=== PATIENT | female | born 1965 | race American Indian/Alaskan Native ===

== ENCOUNTER 2017-05-05 22:54 | Emergency (ER) | payer MEDICAID, OTHER ==
[2017-05-05 23:08] VITALS: BP 120/59
[2017-05-05] MEDS ORDERED: Ketorolac 60 MG/2 ML SDV IM ONE (23:21)
--- NOTE | 2017-05-06 00:04 | EDM.PDOC ---
ED HPI GENERAL MEDICAL PROBLEM - General Chief Complaint: Upper Extremity Injury/Pain Stated Complaint: RIGHT SHOULDER PAIN Time Seen by Provider: 05/05/17 23:00 Source of Information: Reports: Patient History Limitations: Reports: No Limitations - History of Present Illness Onset: Today Onset Date: 05/05/17 Onset Time: 15:00 Duration: Constant Location: Reports: Upper Extremity, Right Quality: Reports: Burning, Pressure Severity: Moderate Improves with: Reports: None Worsens with: Reports: None Associated Symptoms: Reports: No Other Symptoms Right Shoulder Pain Score (Numeric/FACES): 7 - Related Data Allergies Allergy/AdvReac Type Severity Reaction Status Date / Time No Known Allergies Allergy Verified 03/13/16 17:34 Home Meds: Home Meds Cholecalciferol (Vitamin D3) [Vitamin D3] 4,000 unit PO DAILY 03/13/16 [History] Cyanocobalamin (Vitamin B-12) [Cyanocobalamin Injection] 1,000 mcg IM ASDIRECTED 03/13/16 [History] DULoxetine [Cymbalta] 60 mg PO DAILY 03/13/16 [History] Gabapentin [Neurontin] 300 mg PO DAILY 03/13/16 [History] Past Medical History HEENT History: Reports: 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: Musculoskeletal History: Reports: Back Pain, Chronic Psychiatric History: Reports: Depression Hematologic History: Reports: B12 Deficiency - Infectious Disease History Infectious Disease History: Reports: Chicken Pox - Past Surgical History GI Surgical History: Reports: Bariatric Procedure Female Surgical History: Reports: Section Musculoskeletal Surgical History: Reports: Arthroscopic Procedure Social & Family History - Tobacco Use Smoking Status *Q: Current Every Day Smoker Years of Tobacco use: 35 Packs/Tins Daily: 0.5 - Recreational Drug Use Recreational Drug Use: No Review of Systems - Review of Systems Review Of Systems: See Below Constitutional: Reports: Other (pain right shoulder and wrist) Eyes: Reports: No Symptoms Ears: Reports: No Symptoms Nose: Reports: No Symptoms Mouth/Throat: Reports: No Symptoms Respiratory: Reports: No Symptoms Cardiovascular: Reports: No Symptoms GI/Abdominal: Reports: No Symptoms Genitourinary: Reports: No Symptoms Musculoskeletal: Reports: Shoulder Pain (right), Arm Pain (right wrist) Skin: Reports: No Symptoms Neurological: Reports: No Symptoms Psychiatric: Reports: No Symptoms ED EXAM, GENERAL - Physical Exam Exam: See Below Exam Limited By: No Limitations General Appearance: Alert, WD/WN, No Apparent Distress Ears: Normal External Exam, Normal Canal, Hearing Grossly Normal, Normal TMs Ear Exam: Bilateral Ear: Auricle Normal, Canal Normal, TM normal Nose: Normal Inspection, Normal Mucosa, No Blood Throat/Mouth: Normal Inspection Head: Atraumatic, Normocephalic Neck: Normal Inspection, Supple, Non-Tender, Full Range of Motion Respiratory/Chest: No Respiratory Distress, Lungs Clear, Normal Breath Sounds, No Accessory Muscle Use, Chest Non-Tender Cardiovascular: Normal Peripheral Pulses, Regular Rate, Rhythm, No Edema, No Gallop, No JVD, No Murmur, No Rub GI/Abdominal: Normal Bowel Sounds, Soft, Non-Tender, No Organomegaly, No Distention, No Abnormal Bruit, No Mass Extremities: Normal Inspection, Arm Pain (with intact range of motion, no pops, clicks or crepitus of right shoulder and wrist) Neurological: No Motor/Sensory Deficits Psychiatric: Normal Affect, Normal Mood Skin Exam: Warm, Dry, Intact, Normal Color, No Rash Lymphatic: No Adenopathy Course - Vital Signs Last Recorded V/S: Last Vital Signs Temp 35.6 C 05/05/17 23:05 Pulse 77 05/05/17 23:05 Resp 14 05/05/17 23:05 BP 120/59 L 05/05/17 23:05 Pulse Ox 99 05/05/17 23:05 - Orders/Labs/Meds Orders: Active Orders 24 hr Category Date Time Status Shoulder Comp Rt [CR] Stat Exams 05/05/17 23:21 Taken Wrist Comp Min 3V Rt [CR] Stat Exams 05/05/17 23:21 Taken Meds: Medications Discontinued Medications Generic Name Dose Route Start Last Admin Trade Name Freq PRN Reason Stop Dose Admin Ketorolac Tromethamine 60 mg 05/05/17 23:21 05/05/17 23:27 Toradol IM 05/05/17 23:22 60 mg ONETIME ONE Administration - Radiology Interpretation Free Text/Narrative:: xray of right shoulder and right wrist; do not show any acute bony injury. await radiologist report. splint applied to right wrist. Departure - Departure Time of Disposition: 00:01 Disposition: Home, Self-Care 01 Condition: Good Clinical Impression: Sprain of shoulder Qualifiers: Encounter type: initial encounter Laterality: right Sprain of wrist, right Qualifiers: Encounter type: initial encounter Qualified Code(s): S63.501A - Unspecified sprain of right wrist, initial encounter - Discharge Information Instructions: Shoulder Sprain, Wrist Sprain Referrals: Tennille Bernard I FILTER PULP WASHER [Primary Care Provider] - Forms: ED Department Discharge Care Plan Goals: muscle sprain; right shoulder and right wrist -rest, ice, use splint on wrist -over the counter tylenol or motrin for pain -more severe pain; Tramadol 50mg one every 4 to 6 hours as needed for pain #15 -follow up with Primary Care for recheck in 7 to 10 days if not improved or symptoms worsen return to ER as needed. - Problem List & Annotations (1) Sprain of shoulder SNOMED Code(s): 2234123 Code(s): S43.409A - UNSP SPRAIN OF UNSPECIFIED SHOULDER JOINT, INIT ENCNTR Status: Acute Priority: Medium Qualifiers: Encounter type: initial encounter Laterality: right (2) Sprain of wrist, right SNOMED Code(s): 88128889 Code(s): S63.501A - UNSPECIFIED SPRAIN OF RIGHT WRIST, INITIAL ENCOUNTER Status: Acute Priority: Medium Qualifiers: Encounter type: initial encounter Qualified Code(s): S63.501A - Unspecified sprain of right wrist, initial encounter - Problem List Review Problem List Initiated/Reviewed/Updated: Yes - My Orders Last 24 Hours: My Active Orders 05/05/17 23:21 Shoulder Comp Rt [CR] Stat Wrist Comp Min 3V Rt [CR] Stat - Assessment/Plan Last 24 Hours: My Active Orders 05/05/17 23:21 Shoulder Comp Rt [CR] Stat Wrist Comp Min 3V Rt [CR] Stat Plan: muscle sprain; right shoulder and right wrist -rest, ice, use splint on wrist -over the counter tylenol or motrin for pain -more severe pain; Tramadol 50mg one every 4 to 6 hours as needed for pain #15 -follow up with Primary Care for recheck in 7 to 10 days if not improved or symptoms worsen return to ER as needed.
--- NOTE | 2017-05-07 08:43 | CR ---
Wrist Comp Min 3V Rt INDICATION: fall, pain in right wrist FINDINGS: Sclerosis and decreased size of the lunate consistent with avascular necrosis. There is sug gestion of lucency through the lunate which could represent an acute or chronic fracture. CT would be helpful in further evaluation. Exam otherwise negative.
--- NOTE | 2017-05-07 08:44 | CR ---
Shoulder Comp Rt INDICATION: fall, pain in posterior shoulder FINDINGS: Suggestion of resection or reduction of the distal clavicle. Lateral downsloping of the acr omion. No evidence for acute fracture.
== END 2017-05-06 00:10 | disposition home or self-care (01) ==
LOC: JP.ED 22:54
DX: S43.401A Unspecified sprain of right shoulder joint, initial encounter (principal); S63.501A Unspecified sprain of right wrist, initial encounter; F32.9 Major depressive disorder, single episode, unspecified; F17.210 Nicotine dependence, cigarettes, uncomplicated; Z79.899 Other long term (current) drug therapy; X58.XXXA Exposure to other specified factors, initial encounter
CPT/HCPCS: 73030; 73110; 96372; 99283; 99284; J1885

== ENCOUNTER 2017-05-11 20:24 | Emergency (ER) | payer MEDICAID, OTHER ==
[2017-05-11 20:41] VITALS: BP 113/77
--- NOTE | 2017-05-11 21:13 | EDM.PDOC ---
ED HPI GENERAL MEDICAL PROBLEM - General Chief Complaint: Upper Extremity Injury/Pain Stated Complaint: RT SHOULDER PAIN Time Seen by Provider: 05/11/17 21:00 Source of Information: Reports: Patient History Limitations: Reports: No Limitations - History of Present Illness INITIAL COMMENTS - FREE TEXT/NARRATIVE: 51-year-old female has been having right shoulder pain for several weeks, has an orthopedic appointment later this week for recheck on that she's also had wrist discomfort with hand numbness especially at night. That has been going on for 1-2 months at least. She brought her granddaughter in to be seen because of the fever so registered to be seen. She was seen here one week ago, a right shoulder x-ray was obtained which showed no acute findings and she was to follow up this week. She has not told her primary physicians or her orthopedic physicians about her wrist and hand symptoms. 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: Musculoskeletal History: Reports: Back Pain, Chronic Psychiatric History: Reports: Depression Hematologic History: Reports: B12 Deficiency - Infectious Disease History Infectious Disease History: Reports: Chicken Pox - Past Surgical History GI Surgical History: Reports: Bariatric Procedure Female Surgical History: Reports: Section Musculoskeletal Surgical History: Reports: Arthroscopic Procedure Social & Family History - Tobacco Use Smoking Status *Q: Unknown Ever Smoked Years of Tobacco use: 35 Packs/Tins Daily: 0.5 - Recreational Drug Use Recreational Drug Use: No Review of Systems - Review of Systems Review Of Systems: See Below Constitutional: Denies: Fever Respiratory: Denies: Shortness of Breath Cardiovascular: Denies: Chest Pain GI/Abdominal: Denies: Nausea, Vomiting Skin: Reports: No Symptoms Neurological: Reports: Paresthesia (Numbness and paresthesias in the right hand , especially at the fourth and third fingers) Psychiatric: Reports: No Symptoms ED EXAM, GENERAL - Physical Exam Exam: See Below Exam Limited By: No Limitations General Appearance: Alert, No Apparent Distress Respiratory/Chest: No Respiratory Distress, Lungs Clear Extremities: Other (Exam of the right hand reveals symptom distribution of the median nerve. There is a slight discomfort with percussion of the median nerve. Her grasp strength is full and firm. There is no deformity.) Course - Vital Signs Last Recorded V/S: Last Vital Signs Temp 96.8 F 05/11/17 20:46 Pulse 92 05/11/17 20:46 Resp 16 05/11/17 20:46 BP 113/77 05/11/17 20:46 Pulse Ox 99 05/11/17 20:46 - Orders/Labs/Meds Orders: Active Orders 24 hr Category Date Time Status DME for Discharge [COMM] Stat Oth 05/11/17 21:08 Ordered - Re-Assessments/Exams Free Text/Narrative Re-Assessment/Exam: 05/11/17 21:11 I suspect this patient is likely struggling with carpal tunnel syndrome as well as some shoulder arthropathy. I'll place her on prednisone through the weekend and give her a right wrist splint to wear especially at night, and she can discuss he symptoms with orthopedics next week. Departure - Departure Time of Disposition: 21:22 Disposition: Home, Self-Care 01 Condition: Good Clinical Impression: Carpal tunnel syndrome, right - Discharge Information Instructions: Carpal Tunnel Syndrome, [id number] Referrals: Tennille Bernard I, MARKETING INFORMATION COORDINATOR [Primary Care Provider] - Forms: ED Department Discharge Care Plan Goals: Take 5 pills of prednisone with your breakfast for at least the next 3 days and up to 5 days. Wear wrist splint at night until rechecked with orthopedics. - My Orders Last 24 Hours: My Active Orders 05/11/17 21:08 DME for Discharge [COMM] Stat - Assessment/Plan Last 24 Hours: My Active Orders 05/11/17 21:08 DME for Discharge [COMM] Stat
== END 2017-05-11 21:23 | disposition home or self-care (01) ==
LOC: JP.ED 20:24
DX: G56.01 Carpal tunnel syndrome, right upper limb (principal); Z79.899 Other long term (current) drug therapy
CPT/HCPCS: 99283

== ENCOUNTER 2017-09-10 09:41 | Emergency (ER) | payer MEDICAID, OTHER ==
[2017-09-10 09:56] VITALS: BP 101/59
[2017-09-10] MEDS ORDERED: Bacitracin Oint 1 GM U/D Packet TOP ONE (10:04)
--- NOTE | 2017-09-10 10:17 | EDM.PDOC ---
ED HPI GENERAL MEDICAL PROBLEM - General Chief Complaint: Skin Complaint Stated Complaint: LACERATION - RT LEG Time Seen by Provider: 09/10/17 10:05 Source of Information: Reports: Patient, Family History Limitations: Reports: No Limitations - History of Present Illness INITIAL COMMENTS - FREE TEXT/NARRATIVE: pt arrived with ahistory of falling on the payment last nite and she tore her jeans and she has a flap type laceration on the rt knee. She did not come in last nite because she could not get a ride. She had her last tetanus in 2010. She has not cleaned the wound up or she has not dressed the wound Onset: Other (pt injured herself lastnite. ) Duration: Hour(s): Location: Reports: Lower Extremity, Right Quality: Reports: Sharp, Stabbing Associated Symptoms: Reports: Other (pain in rt knee. 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: Musculoskeletal History: Reports: Back Pain, Chronic Psychiatric History: Reports: Depression Hematologic History: Reports: B12 Deficiency - Infectious Disease History Infectious Disease History: Reports: Chicken Pox - Past Surgical History GI Surgical History: Reports: Bariatric Procedure Female Surgical History: Reports: Section Musculoskeletal Surgical History: Reports: Arthroscopic Procedure Social & Family History - Tobacco Use Smoking Status *Q: Heavy Tobacco Smoker Years of Tobacco use: 30 Packs/Tins Daily: 0.1 - Caffeine Use Caffeine Use: Reports: Coffee, Soda - Recreational Drug Use Recreational Drug Use: No ED ROS GENERAL - Review of Systems Review Of Systems: See Below Constitutional: Reports: Chills, Weakness, Other (pt is feeling very shakey) HEENT: Reports: No Symptoms Respiratory: Reports: No Symptoms Cardiovascular: Reports: No Symptoms Endocrine: Reports: No Symptoms GI/Abdominal: Reports: Diarrhea, Nausea, Vomiting : Reports: No Symptoms Musculoskeletal: Reports: No Symptoms Skin: Reports: No Symptoms Neurological: Reports: No Symptoms Psychiatric: Reports: Agitation, Anxiety ED EXAM, SKIN/RASH Exam: See Below Text/Narrative:: pt arrived with pain in rt knee. She fell on the road and she has a flab type laceration just below the knee cap. Exam Limited By: No Limitations General Appearance: Alert, Anxious Ears: Normal TMs Nose: Normal Inspection Throat/Mouth: Normal Inspection Head: Atraumatic Neck: Normal Inspection Respiratory/Chest: No Respiratory Distress Cardiovascular: Regular Rate, Rhythm GI/Abdominal: Soft, Non-Tender Extremities: Other (pt has a 1 inch flap type laceration below the knee cap . She had an xray of the knee which was neg. ) Course - Vital Signs Last Recorded V/S: Last Vital Signs Temp 36.4 C 09/10/17 09:56 Pulse 80 09/10/17 09:56 Resp 18 09/10/17 09:56 BP 101/59 L 09/10/17 09:56 Pulse Ox 100 09/10/17 09:56 - Orders/Labs/Meds Meds: Medications Discontinued Medications Generic Name Dose Route Start Last Admin Trade Name Freq PRN Reason Stop Dose Admin Bacitracin 1 dose 09/10/17 10:04 09/10/17 10:07 Bacitracin Oint 1 Gm TOP 09/10/17 10:05 1 dose ONETIME ONE Administration Lidocaine HCl 5 ml 09/10/17 10:04 09/10/17 10:07 Xylocaine-Mpf 1% INJECT 09/10/17 10:05 5 ml ONETIME ONE Administration - Re-Assessments/Exams Free Text/Narrative Re-Assessment/Exam: 09/10/17 11:22 The area was cleansed well nd infiltratd with lidocaine. The flap was brought loosely together.The wound is greater than 24 hours old. Will cover with 5 days of antibiotic Departure - Departure Time of Disposition: 11:24 Disposition: Home, Self-Care 01 Condition: Fair Clinical Impression: Laceration, Contusion of right knee - Discharge Information Instructions: Sutured Wound Care Referrals: Tennille Bernard I HOLLOW TILE PARTITION ERECTOR [Primary Care Provider] - Forms: ED Department Discharge Care Plan Goals: keep dry and covered, sr in 7-8 days, avoid bending or kneeling on the knee. keflex 500mg tid for 5 days.
--- NOTE | 2017-09-10 10:53 | CR ---
Knee 3V Rt HISTORY: Pain, fall. COMPARISON: None FINDINGS: Normal joint space preservation. No acute fracture or bony destructive process. No effusion . Impression: Negative right knee.
== END 2017-09-10 11:29 | disposition home or self-care (01) ==
LOC: JP.ED 09:41
DX: S81.011A Laceration without foreign body, right knee, initial encounter (principal); F17.210 Nicotine dependence, cigarettes, uncomplicated; F32.9 Major depressive disorder, single episode, unspecified; Z79.899 Other long term (current) drug therapy; W19.XXXA Unspecified fall, initial encounter; Y92.480 Sidewalk as the place of occurrence of the external cause
CPT/HCPCS: 73562-26-RT; 73562-RT; 99284

== ENCOUNTER 2017-11-17 09:38 | Emergency (ER) | payer MEDICAID ==
[2017-11-17 09:56] VITALS: BP 114/75
--- NOTE | 2017-11-17 10:23 | EDM.PDOC ---
ED HPI GENERAL MEDICAL PROBLEM - General Chief Complaint: Skin Complaint Stated Complaint: PAINFUL BOIL Time Seen by Provider: 11/17/17 09:55 Source of Information: Reports: Patient, Old Records, RN History Limitations: Reports: No Limitations - History of Present Illness INITIAL COMMENTS - FREE TEXT/NARRATIVE: 51 yo NA female presents with several days of a boil on her L labia majora. Has had these in the past. Has tried without success to get into her primary. Last took ibuprofen before bed yesterday. 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) (none) - Related Data Allergies Allergy/AdvReac Type Severity Reaction Status Date / Time No Known Allergies Allergy Verified 11/17/17 09:56 Home Meds: Home Meds FLUoxetine HCl [Prozac] 60 mg PO DAILY 05/11/17 [History] Gabapentin [Neurontin] 300 mg PO ASDIRECTED 09/10/17 [History] Acetaminophen/HYDROcodone [[place] 325-5 MG] 1 - 2 tab PO Q6H PRN #14 tab [Rx] Cephalexin [Keflex] 500 mg PO Q6H #28 cap 11/17/17 [Rx] Past Medical History 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: Musculoskeletal History: Reports: Back Pain, Chronic Psychiatric History: Reports: Depression Hematologic History: Reports: B12 Deficiency - Infectious Disease History Infectious Disease History: Reports: Chicken Pox - Past Surgical History GI Surgical History: Reports: Bariatric Procedure Female Surgical History: Reports: Section Musculoskeletal Surgical History: Reports: Arthroscopic Procedure Social & Family History - Tobacco Use Smoking Status *Q: Current Some Day Smoker Years of Tobacco use: 20 Packs/Tins Daily: 0.2 - Caffeine Use Caffeine Use: Reports: Coffee - Recreational Drug Use Recreational Drug Use: No ED ROS GENERAL - Review of Systems Review Of Systems: See Below Constitutional: Reports: No Symptoms HEENT: Reports: No Symptoms Respiratory: Reports: No Symptoms Cardiovascular: Reports: No Symptoms GI/Abdominal: Reports: No Symptoms : Reports: No Symptoms Musculoskeletal: Reports: No Symptoms Skin: Reports: Erythema, Other (boil to L labia) Neurological: Reports: No Symptoms ED EXAM, SKIN/RASH Exam: See Below Exam Limited By: No Limitations General Appearance: Alert, WD/WN, No Apparent Distress, Anxious Ears: Normal External Exam Nose: Normal Inspection Throat/Mouth: Normal Inspection Head: Atraumatic, Normocephalic Neck: Normal Inspection Respiratory/Chest: No Respiratory Distress Cardiovascular: Regular Rate, Rhythm Psychiatric: Normal Affect, Normal Mood, Anxious Skin: Warm, Dry, Intact, Erythema (2 cm L labia boil, no drainage. Soft. Non- fluctuant. ) Location, Skin: Other (L labia majora) Characteristics: Other (boil) Associated features: Tenderness, Induration, Inflammation Lymphatic: No Adenopathy Course - Vital Signs Last Recorded V/S: Last Vital Signs Temp 36.4 C 11/17/17 09:55 Pulse 80 11/17/17 09:55 Resp 18 11/17/17 09:55 BP 114/75 11/17/17 09:55 Pulse Ox 100 11/17/17 09:55 Departure - Departure Time of Disposition: 10:15 Disposition: Home, Self-Care 01 Condition: Good Clinical Impression: Labial abscess - Discharge Information Prescriptions: Acetaminophen/HYDROcodone [[place] 325-5 MG] 1 - 2 tab PO Q6H PRN #14 tab PRN Reason: Pain Cephalexin [Keflex] 500 mg PO Q6H #28 cap Instructions: Skin Abscess, [id number] Referrals: Tennille Bernard I WAITER/WAITRESS TOURIST CLASS [Primary Care Provider] - Forms: ED Department Discharge, ED Return to Work/School Form
== END 2017-11-17 10:16 | disposition home or self-care (01) ==
LOC: JP.ED 09:38
DX: N76.4 Abscess of vulva (principal); F17.210 Nicotine dependence, cigarettes, uncomplicated; Z79.899 Other long term (current) drug therapy; F32.9 Major depressive disorder, single episode, unspecified
CPT/HCPCS: 99282

== ENCOUNTER 2017-11-21 08:46 | Emergency (ER) | payer MEDICAID ==
[2017-11-21 09:00] VITALS: BP 123/56
[2017-11-21] MEDS ORDERED: Ketorolac 30 MG/ML SDV IM ONE (09:14)
[2017-11-21] MEDS ORDERED: LORazepam 2 MG/ML SDV ONE (09:29)
[2017-11-21] MEDS ORDERED: LORazepam 2 MG/ML SDV IM ONE (09:33)
--- NOTE | 2017-11-21 10:06 | EDM.PDOC ---
ED HPI GENERAL MEDICAL PROBLEM - General Chief Complaint: Genitourinary Problem Stated Complaint: RECHECK BOIL/CYST Time Seen by Provider: 11/21/17 09:14 Source of Information: Reports: Patient, Old Records, RN Notes Reviewed History Limitations: Reports: No Limitations - History of Present Illness INITIAL COMMENTS - FREE TEXT/NARRATIVE: 51-year-old female presents to the emergency department today for increasing pain in her labia she was evaluated in the emergency department on 519 labial abscess at that time placed on antibiotics as well as hydrocodone. She returns to the emergency department complaint of pain and drainage from the abscess site. Denies any nausea, vomiting, fevers, shortness of breath, chest pain, or GI symptomatology. Vaginal Pain Score (Numeric/FACES): 9 - Related Data Allergies Allergy/AdvReac Type Severity Reaction Status Date / Time No Known Allergies Allergy Verified 11/17/17 09:56 Home Meds: Home Meds FLUoxetine HCl [Prozac] 60 mg PO DAILY 05/11/17 [History] Gabapentin [Neurontin] 300 mg PO ASDIRECTED 09/10/17 [History] Acetaminophen/HYDROcodone [[place] 325-5 MG] 1 - 2 tab PO Q6H PRN #14 tab [Rx] Cephalexin [Keflex] 500 mg PO Q6H #28 cap 11/17/17 [Rx] Past Medical History HEENT History: Reports: Impaired Vision [facility] History: Reports: Musculoskeletal History: Reports: Back Pain, Chronic Psychiatric History: Reports: Depression Hematologic History: Reports: B12 Deficiency - Infectious Disease History Infectious Disease History: Reports: Chicken Pox - Past Surgical History GI Surgical History: Reports: Bariatric Procedure Female Surgical History: Reports: Section Musculoskeletal Surgical History: Reports: Arthroscopic Procedure Social & Family History - Tobacco Use Smoking Status *Q: Light Tobacco Smoker Years of Tobacco use: 30 Packs/Tins Daily: 0.1 - Caffeine Use Caffeine Use: Reports: Coffee - Recreational Drug Use Recreational Drug Use: No ED ROS GENERAL - Review of Systems Review Of Systems: See Below Constitutional: Reports: No Symptoms Respiratory: Reports: No Symptoms Cardiovascular: Reports: No Symptoms GI/Abdominal: Reports: No Symptoms : Reports: Other (Drainage from abscess site) ED EXAM, RENAL/ - Physical Exam Exam: See Below Text/Narrative:: Examination done in the presence of nursing staff I do appreciate a abscess about the size of a golf ball on the inferior aspect labia majora left side, it is very tender to the touch Exam Limited By: No Limitations General Appearance: Moderate Distress ED I&D PROCEDURES - I&D Site: Labia majora Skin prep: Other (Ethylene chloride spray) Local anesthesia - Lidocaine (Xylocaine): 1% Plain Local Anesthetic Volume: 1cc Area Incised With: 11 Blade Drainage: Bloody, Small Amount Probed to Break Up Loculations: Yes Packed With: Other (Attempted to place a Word catheter however she did not tolerate this) Sterile Dressing: Adhesive Dressing Complications: No Course - Vital Signs Last Recorded V/S: Last Vital Signs Temp 97.3 F 11/21/17 09:00 Pulse 77 11/21/17 09:00 Resp 18 11/21/17 09:00 BP 123/56 L 11/21/17 09:00 Pulse Ox 100 11/21/17 09:00 - Orders/Labs/Meds Meds: Medications Discontinued Medications Generic Name Dose Route Start Last Admin Trade Name Sabra PRN Reason Stop Dose Admin Ketorolac Tromethamine 30 mg 11/21/17 09:14 11/21/17 09:19 Toradol IM 11/21/17 09:15 30 mg ONETIME ONE Administration Lidocaine HCl 5 ml 11/21/17 09:14 11/21/17 09:19 Xylocaine-Mpf 1% INJECT 11/21/17 09:15 5 ml ONETIME ONE Administration Lorazepam Confirm 11/21/17 09:29 Ativan Administered 11/21/17 09:30 Dose 2 mg .ROUTE .STK-MED ONE Lorazepam 1 mg 11/21/17 09:33 11/21/17 09:39 Ativan IM 11/21/17 09:34 1 mg ONETIME ONE Administration Departure - Departure Time of Disposition: 10:05 Disposition: Home, Self-Care 01 Condition: Good Clinical Impression: Labial abscess - Discharge Information Referrals: Tennille Bernard NP [Primary Care Provider] - Additional Instructions: Continue taking antibiotics, use ibuprofen for baseline pain control, use Percocet as needed for breakthrough pain, please follow-up with appointment with [facility] - Assessment/Plan Plan: Assessment Acuity = acute Site and laterality = abscess labia majora Etiology = suspicious for bacterial cause Manifestations = vaginal pain Location of injury = Home Lab values = none Plan Continue antibiotics previously prescribed prescription written for Percocet 5/ 325 one tablet by mouth 3 times a day when necessary total #10 consultation set up with [facility] This note was dictated using [employer] voice recognition software please call with any questions on syntax or grammar.
== END 2017-11-21 10:23 | disposition home or self-care (01) ==
LOC: JP.ED 08:46
DX: N76.4 Abscess of vulva (principal); F32.9 Major depressive disorder, single episode, unspecified; F17.210 Nicotine dependence, cigarettes, uncomplicated; Z79.899 Other long term (current) drug therapy
CPT/HCPCS: 56405; 96372; 99282; 99283; J1885; J2060

== ENCOUNTER 2017-12-25 11:26 | Emergency (ER) | payer MEDICAID | END 2017-12-25 13:35 | disposition left against medical advice (07) | LOC: JP.ED 11:26 | DX: Z53.21 Procedure and treatment not carried out due to patient leaving prior to being seen by health care provider (principal) ==

== ENCOUNTER 2017-12-26 10:25 | Emergency (ER) | payer MEDICAID ==
[2017-12-26 10:50] VITALS: BP 103/55
--- NOTE | 2017-12-26 11:21 | EDM.PDOC ---
ED HPI GENERAL MEDICAL PROBLEM - General Chief Complaint: Genitourinary Problem Stated Complaint: BOIL ON LEFT LABIA Time Seen by Provider: 12/26/17 10:55 Source of Information: Reports: Patient History Limitations: Reports: No Limitations - History of Present Illness INITIAL COMMENTS - FREE TEXT/NARRATIVE: 52-year-old female with recurring perineal lesions and pain has been having pain in the right perineal area for the past 2-3 days. The pain is radiating down the right inner thigh. Onset: Gradual Duration: Day(s): (2-3 days) Severity: Moderate Associated Symptoms: Reports: Other (No dysuria). 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: Musculoskeletal History: Reports: Back Pain, Chronic Other Musculoskeletal History: carpal tunnel Psychiatric History: Reports: Depression Endocrine/Metabolic History: Reports: Obesity/BMI 30+ Hematologic History: Reports: B12 Deficiency - Infectious Disease History Infectious Disease History: Reports: Chicken Pox - Past Surgical History GI Surgical History: Reports: Bariatric Procedure Female Surgical History: Reports: Section Musculoskeletal Surgical History: Reports: Arthroscopic Procedure Social & Family History - Tobacco Use Smoking Status *Q: Current Every Day Smoker Years of Tobacco use: 30 Packs/Tins Daily: 0.3 - Caffeine Use Caffeine Use: Reports: Coffee - Recreational Drug Use Recreational Drug Use: No ED ROS GENERAL - Review of Systems Review Of Systems: See Below Constitutional: Reports: Malaise HEENT: Reports: No Symptoms Respiratory: Denies: Shortness of Breath Cardiovascular: Denies: Chest Pain GI/Abdominal: Denies: Nausea, Vomiting Skin: Reports: Erythema Neurological: Denies: Headache ED EXAM, GENERAL - Physical Exam Exam: See Below Exam Limited By: No Limitations General Appearance: Alert, No Apparent Distress Respiratory/Chest: No Respiratory Distress (Female) Exam: Other (Perineal area shows some erythema on the right labia majora, very sensitive and tender to palpation with a central shallow ulceration. There is no firmness, swelling, fluctuance or subcutaneous infection.) Course - Vital Signs Last Recorded V/S: Last Vital Signs Temp 96.1 F 12/26/17 10:56 Pulse 68 12/26/17 10:56 Resp 16 12/26/17 10:56 BP 103/55 L 12/26/17 10:56 Pulse Ox 99 12/26/17 10:56 - Re-Assessments/Exams Free Text/Narrative Re-Assessment/Exam: 12/26/17 11:14 These findings are typical of herpes, and a culture was obtained off of the central ulceration. Patient will be placed on Famvir 500 mg 3 times a day for 7 days. Can return if worsening despite treatment. Departure - Departure Time of Disposition: 11:33 Disposition: Home, Self-Care 01 Condition: Good Clinical Impression: Inflammation of labium - Discharge Information Instructions: Genital Herpes Referrals: Tennille Brenard I PLASTER AND STUCCO WORKER [Primary Care Provider] - Forms: ED Department Discharge Care Plan Goals: Take Famvir 3 times a day for a full 7 days, recheck in 2-3 days if not improving with treatment. Return sooner if worsening such as increased swelling.
== END 2017-12-26 11:33 | disposition home or self-care (01) ==
LOC: JP.ED 10:25
DX: N76.2 Acute vulvitis (principal); F17.210 Nicotine dependence, cigarettes, uncomplicated; F32.9 Major depressive disorder, single episode, unspecified; Z79.899 Other long term (current) drug therapy
CPT/HCPCS: 99284

== ENCOUNTER 2018-02-13 13:19 | Emergency (ER) | payer MEDICAID ==
[2018-02-13 14:17] VITALS: BP 107/50
[2018-02-13] MEDS ORDERED: Cyclobenzaprine 10 MG Tab PO ONE (14:38)
[2018-02-13] MEDS ORDERED: Ketorolac 60 MG/2 ML SDV IM ONE (14:38)
--- NOTE | 2018-02-13 14:40 | EDM.PDOC ---
ED HPI GENERAL MEDICAL PROBLEM - General Chief Complaint: Back Pain or Injury Stated Complaint: LOWER BACK PAIN Time Seen by Provider: 02/13/18 14:35 Source of Information: Reports: Patient, RN Notes Reviewed History Limitations: Reports: No Limitations - History of Present Illness INITIAL COMMENTS - FREE TEXT/NARRATIVE: 52-year-old female presents to the emergency department today complaint of low back pain, she denies any trauma, has had this problem the about 10 years ago no loss of bladder no fevers pain is predominantly on the right side lumbar region Lower Back Pain Score (Numeric/FACES): 8 - Related Data Allergies Allergy/AdvReac Type Severity Reaction Status Date / Time No Known Allergies Allergy Verified 02/13/18 14:12 Home Meds: Home Meds FLUoxetine HCl [Prozac] 60 mg PO DAILY 05/11/17 [History] Gabapentin [Neurontin] 300 mg PO ASDIRECTED 09/10/17 [History] Past Medical History HEENT History: Reports: 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: Musculoskeletal History: Reports: Back Pain, Chronic Other Musculoskeletal History: carpal tunnel Psychiatric History: Reports: Anxiety, Depression Endocrine/Metabolic History: Reports: Obesity/BMI 30+ (Status post gastric bypass BMI now 20) Hematologic History: Reports: Anemia, B12 Deficiency, Iron Deficiency Immunologic History: Reports: None - Infectious Disease History Infectious Disease History: Reports: Chicken Pox - Past Surgical History GI Surgical History: Reports: Bariatric Procedure Female Surgical History: Reports: Section Endocrine Surgical History: Reports: None Musculoskeletal Surgical History: Reports: Arthroscopic Knee, Carpal Tunnel Social & Family History - Tobacco Use Smoking Status *Q: Current Some Day Smoker Years of Tobacco use: 10 Packs/Tins Daily: 0.2 Used Tobacco, but Quit: No Second Hand Smoke Exposure: No - Caffeine Use Caffeine Use: Reports: Coffee - Recreational Drug Use Recreational Drug Use: No ED ROS GENERAL - Review of Systems Review Of Systems: See Below Constitutional: Reports: No Symptoms Musculoskeletal: Reports: Back Pain Neurological: Reports: No Symptoms ED EXAM,LOWER BACK PAIN/INJURY - Physical Exam Exam: See Below Exam Limited By: No Limitations General Appearance: Alert, Moderate Distress Respiratory/Chest: No Respiratory Distress Back Exam: Normal Inspection, Decreased Range of Motion, Muscle Spasm, Paraspinal Tenderness. No: CVA Tenderness (R), CVA Tenderness (L), Vertebral Tenderness (Lower leg) Course - Vital Signs Last Recorded V/S: Last Vital Signs Temp 98.3 F 02/13/18 14:20 Pulse 100 02/13/18 14:20 Resp 15 02/13/18 14:20 BP 107/50 L 02/13/18 14:20 Pulse Ox 96 02/13/18 14:20 - Orders/Labs/Meds Meds: Medications Discontinued Medications Generic Name Dose Route Start Last Admin Trade Name Freq PRN Reason Stop Dose Admin Cyclobenzaprine HCl 10 mg 02/13/18 14:38 02/13/18 14:53 Flexeril PO 02/13/18 14:39 10 mg ONETIME ONE Administration Ketorolac Tromethamine 60 mg 02/13/18 14:38 02/13/18 14:53 Toradol IM 02/13/18 14:39 60 mg ONETIME ONE Administration Departure - Departure Time of Disposition: 16:05 Disposition: Eloped 07 Condition: Undetermined Clinical Impression: Patient condition undetermined - Discharge Information Referrals: Tennille Bernard I LOCOMOTIVE OBSERVER [Primary Care Provider] - Forms: ED Department Discharge - Assessment/Plan Plan: Assessment and plan could not be completed as patient eloped
== END 2018-02-13 16:07 | disposition left against medical advice (07) ==
LOC: JP.ED 13:19
DX: M62.830 Muscle spasm of back (principal); F17.210 Nicotine dependence, cigarettes, uncomplicated; E66.9 Obesity, unspecified
CPT/HCPCS: 96372; 99283; A9270; J1885

== ENCOUNTER 2018-09-03 09:41 | Emergency (ER) | payer MEDICAID, OTHER ==
[2018-09-03 10:03] VITALS: BP 122/64
[2018-09-03] MEDS ORDERED: Ketorolac 60 MG/2 ML SDV IM ONE (10:40)
[2018-09-03] MEDS ORDERED: Acetaminophen/oxyCODONE 325-5 MG Tab PO ONE (10:40)
--- NOTE | 2018-09-03 11:21 | EDM.PDOC ---
ED HPI GENERAL MEDICAL PROBLEM - General Chief Complaint: General Stated Complaint: LEFT SIDE PAIN IN RIB AREA Time Seen by Provider: 09/03/18 11:17 Source of Information: Reports: Patient History Limitations: Reports: No Limitations - History of Present Illness INITIAL COMMENTS - FREE TEXT/NARRATIVE: pt was trying to open a door and she hit her rt side and now she is having alot of rib pain in the rt rib area. She hurts when she takes a deep breath. This happened last nite and she was not able to rest. Onset: Other ( started last nite after she hit her side. ) Duration: Hour(s): Location: Reports: Chest Associated Symptoms: Reports: Chest Pain, Shortness of Breath, Other (hurts to when taking deep breaths. 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: Musculoskeletal History: Reports: Back Pain, Chronic Other Musculoskeletal History: carpal tunnel Psychiatric History: Reports: Anxiety, Depression Endocrine/Metabolic History: Reports: Obesity/BMI 30+ (Status post gastric bypass BMI now 20) Hematologic History: Reports: Anemia, B12 Deficiency, Iron Deficiency Immunologic History: Reports: None - Infectious Disease History Infectious Disease History: Reports: Chicken Pox - Past Surgical History Head Surgeries/Procedures: Reports: None GI Surgical History: Reports: Bariatric Procedure Female Surgical History: Reports: Section Endocrine Surgical History: Reports: None Musculoskeletal Surgical History: Reports: Arthroscopic Knee, Carpal Tunnel Social & Family History - Tobacco Use Smoking Status *Q: Current Some Day Smoker Years of Tobacco use: 10 Packs/Tins Daily: 0.5 - Caffeine Use Caffeine Use: Reports: Coffee - Recreational Drug Use Recreational Drug Use: No ED ROS GENERAL - Review of Systems Review Of Systems: See Below Constitutional: Reports: No Symptoms HEENT: Reports: No Symptoms Respiratory: Reports: Shortness of Breath, Other (hurts in her rt ribs. ) Cardiovascular: Reports: No Symptoms Endocrine: Reports: No Symptoms GI/Abdominal: Reports: No Symptoms : Reports: No Symptoms Musculoskeletal: Reports: Other ( pain in the rt rib cage. ) Skin: Reports: No Symptoms ED EXAM, GENERAL - Physical Exam Exam: See Below Free Text/Narrative:: pt arrived with pain in her left chest. She was trying to get a door open and she hit the chest. She was very uncomfortable all nite. She does have a upcoming appt with her regular provider. Exam Limited By: No Limitations General Appearance: Alert, Moderate Distress Ears: Normal TMs Nose: Normal Inspection Throat/Mouth: Normal Inspection Head: Atraumatic Neck: Normal Inspection Respiratory/Chest: Other (pt is tender to palpate over the left rib cage area. She has good breath sounds bilaterally. Her vitals are good. ) Cardiovascular: Regular Rate, Rhythm GI/Abdominal: Soft, Non-Tender Course - Vital Signs Last Recorded V/S: Last Vital Signs Temp 36.3 C 09/03/18 10:01 Pulse 87 09/03/18 10:01 Resp 16 09/03/18 10:01 BP 122/64 09/03/18 10:01 Pulse Ox 97 09/03/18 10:01 - Orders/Labs/Meds Orders: Active Orders 24 hr Category Date Time Status Ribs 2V w Chest Lt [CR] Stat Exams 09/03/18 10:41 Taken Meds: Medications Discontinued Medications Generic Name Dose Route Start Last Admin Trade Name Freq PRN Reason Stop Dose Admin Ketorolac Tromethamine 60 mg 09/03/18 10:40 09/03/18 10:43 Toradol IM 09/03/18 10:41 60 mg ONETIME ONE Administration Oxycodone/Acetaminophen 1 tab 09/03/18 10:40 09/03/18 10:46 Percocet 325-5 Mg PO 09/03/18 10:41 1 tab ONETIME ONE Administration - Re-Assessments/Exams Free Text/Narrative Re-Assessment/Exam: 09/03/18 11:58 chest xray and rib detail were obtained and did not reveal definite fractures present. Departure - Departure Time of Disposition: 11:52 Disposition: Home, Self-Care 01 Condition: Fair Clinical Impression: Contusion of left chest wall - Discharge Information Referrals: Tennille Bernard I WHARF OPERATOR [Primary Care Provider] - Forms: ED Department Discharge Care Plan Goals: encourage deep breathing, cool packs to the left chest. tramodol 50mg q6h for the next 2-3 days, tylenol can be taken in between the tramodol. - My Orders Last 24 Hours: My Active Orders 09/03/18 10:41 Ribs 2V w Chest Lt [CR] Stat - Assessment/Plan Last 24 Hours: My Active Orders 09/03/18 10:41 Ribs 2V w Chest Lt [CR] Stat
--- NOTE | 2018-09-03 12:21 | CRLCR ---
INDICATION: Lower rib pain TECHNIQUE: Chest and left ribs 3 views. COMPARISON: None FINDINGS: Cardiovascular and mediastinum: Heart size and vasculature are normal in caliber and appearance. Mediastinum is within normal limits. Lungs and pleural spaces: Lungs are clear. No sign of infiltrate or mass. No sign of pleural effusion. No pneumothorax. Bones and soft tissues: Detailed oblique images of the left ribs demonstrate no fractures or bone lesions. IMPRESSION: Unremarkable chest and left ribs. Dictated by Frank Menendez MD @ 09/03/2018 12:20:12 PM Dictated by: Frank Menendez MD @ 09/03/2018 12:20:20 (Electronically Signed)
== END 2018-09-03 12:01 | disposition home or self-care (01) ==
LOC: JP.ED 09:41
DX: S20.212A Contusion of left front wall of thorax, initial encounter (principal); F41.9 Anxiety disorder, unspecified; F32.9 Major depressive disorder, single episode, unspecified; F17.210 Nicotine dependence, cigarettes, uncomplicated; Z79.899 Other long term (current) drug therapy; W22.8XXA Striking against or struck by other objects, initial encounter
CPT/HCPCS: 71101; 96372; 99283; A9270; J1885

== ENCOUNTER 2018-10-13 12:43 | Emergency (ER) | payer MEDICAID, OTHER ==
[2018-10-13] MEDS ORDERED: fentaNYL 100 MCG/2 ML SDV IM ONE (14:33)
--- NOTE | 2018-10-13 14:37 | EDM.PDOC ---
<Robin Muhammad - Last Filed: 10/13/18 15:11> ED HPI GENERAL MEDICAL PROBLEM - General Chief Complaint: Upper Extremity Injury/Pain Stated Complaint: BROKEN ARM SWELLING Time Seen by Provider: 10/13/18 14:20 - Related Data Allergies Allergy/AdvReac Type Severity Reaction Status Date / Time No Known Allergies Allergy Verified 10/13/18 14:43 Home Meds: Home Meds FLUoxetine HCl [Prozac] 60 mg PO DAILY 05/11/17 [History] Gabapentin [Neurontin] 300 mg PO ASDIRECTED 09/10/17 [History] ED EXAM, GENERAL - Physical Exam Free Text/Narrative:: Agree with exam below Course - Vital Signs Last Recorded V/S: Last Vital Signs Temp 36.1 C 10/13/18 14:53 Pulse 104 H 10/13/18 14:53 Resp 16 10/13/18 14:53 BP 110/76 10/13/18 14:53 Pulse Ox 98 10/13/18 14:53 - Orders/Labs/Meds Meds: Medications Discontinued Medications Generic Name Dose Route Start Last Admin Trade Name Sabra PRN Reason Stop Dose Admin Fentanyl 50 mcg 10/13/18 14:33 10/13/18 14:41 Sublimaze IM 10/13/18 14:34 50 mcg ONETIME ONE Administration Departure - Departure Time of Disposition: 15:13 Disposition: Home, Self-Care 01 Condition: Fair Clinical Impression: Cast discomfort - Discharge Information Instructions: Cast or Splint Care, Adult Referrals: PCP,None [Primary Care Provider] - Forms: ED Department Discharge Additional Instructions: Use Percocet as needed for pain control, please follow-up with orthopedics next 1-2 days call return to the emergency department worsening of symptoms - Assessment/Plan Plan: Assessment Acuity = acute Site and laterality = edema and pain right forearm and distal hand Etiology = secondary to cast constriction Manifestations = none Location of injury = Home Lab values = none Plan Cast was relieved by nursing staff bivalve was placed wide half-inch strip on each side which provided good pain relief prescription written for Percocet 5/ 325 one tab by mouth every 6 hours when necessary total #10 she will follow-up with orthopedics in the next 1-2 days Robin Amaya MD was personally available for consultation in the ED. I have reviewed the chart and agree with the documentation as recorded by the HIGH SPEED OPERATOR Student, including the assessment, treatment plan and disposition. Robin Amaya MD personally saw and examined the patient. I have reviewed and agree with the HIGH SPEED OPERATOR Student's findings. This note was dictated using [employer] voice recognition software please call with any questions on syntax or grammar. <Nina Floyd - Last Filed: 10/13/18 17:33> ED HPI GENERAL MEDICAL PROBLEM - General Source of Information: Reports: Patient History Limitations: Reports: No Limitations - History of Present Illness INITIAL COMMENTS - FREE TEXT/NARRATIVE: Patient presents to ED with cast to right arm and largely swollen fingers; patient reports throbbing pain all night long and has gotten acute this morning. 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: Musculoskeletal History: Reports: Back Pain, Chronic Other Musculoskeletal History: carpal tunnel Psychiatric History: Reports: Anxiety, Depression Endocrine/Metabolic History: Reports: Obesity/BMI 30+ (Status post gastric bypass BMI now 20) Hematologic History: Reports: Anemia, B12 Deficiency, Iron Deficiency Immunologic History: Reports: None - Infectious Disease History Infectious Disease History: Reports: Chicken Pox - Past Surgical History Head Surgeries/Procedures: Reports: None GI Surgical History: Reports: Bariatric Procedure Female Surgical History: Reports: Section Endocrine Surgical History: Reports: None Musculoskeletal Surgical History: Reports: Arthroscopic Knee, Carpal Tunnel Social & Family History - Caffeine Use Caffeine Use: Reports: Coffee Review of Systems - Review of Systems Review Of Systems: See Below Respiratory: Reports: No Symptoms Cardiovascular: Reports: No Symptoms Musculoskeletal: Reports: Arm Pain, Hand Pain, Other (Right hand and forearm pain after fell onto outstretched hand and sustained fracture. Ortho reports states closed reduction and casting right distal radius fracture - short-arm fiberglass cast was then placed. ) ED EXAM, GENERAL - Physical Exam Exam: See Below Exam Limited By: No Limitations General Appearance: Alert, WD/WN, Moderate Distress Ears: Hearing Grossly Normal Respiratory/Chest: No Respiratory Distress Extremities: Other (right arm in cast, fingers swollen to sausage-like size, all fingers bluish tinge to them. Warm to touch. Patient states can feel my light touch. Capillary refill in all fingers less than 3 seconds. ) Course - Vital Signs Text/Narrative:: Cast cutter used per RN to create space. Patient states immediate lessening of pain after cast was split. Cast still intact holding arm in gross approximation of original design and patient encouraged to hold arm upright across chest to elevate which patient readily does. After consult with preceptor suggestion to remove thin strip of casting material so that cast won't close upon pepito wrap application. Used cast cutter to remove approx. 3/8 inch material. Patient in pain, but tolerated procedure well. Pepito applied loosely to hold halves in place. Patient more comfortable when this process was complete. Last Recorded V/S: Last Vital Signs Temp 36.1 C 10/13/18 14:53 Pulse 104 H 10/13/18 14:53 Resp 16 10/13/18 14:53 BP 110/76 10/13/18 14:53 Pulse Ox 98 10/13/18 14:53 - Orders/Labs/Meds Meds: Medications Discontinued Medications Generic Name Dose Route Start Last Admin Trade Name Freq PRN Reason Stop Dose Admin Fentanyl 50 mcg 10/13/18 14:33 10/13/18 14:41 Sublimaze IM 10/13/18 14:34 50 mcg ONETIME ONE Administration - Re-Assessments/Exams Free Text/Narrative Re-Assessment/Exam: 10/13/18 15:07 Patient able to freely move all fingers, recommended that she does this throughout rest of day and into night. To follow up with ortho tomorrow.
[2018-10-13 14:45] VITALS: BP 110/76
== END 2018-10-13 15:31 | disposition home or self-care (01) ==
LOC: JP.ED 12:43
DX: Z47.89 Encounter for other orthopedic aftercare (principal); F41.9 Anxiety disorder, unspecified; F32.9 Major depressive disorder, single episode, unspecified; Z79.899 Other long term (current) drug therapy
CPT/HCPCS: 96372; 99283; J3010

== ENCOUNTER 2018-11-10 19:28 | Emergency (ER) | payer MEDICAID | END 2018-11-10 20:22 | disposition left against medical advice (07) | LOC: JP.ED 19:28 | DX: Z53.21 Procedure and treatment not carried out due to patient leaving prior to being seen by health care provider (principal) ==

== ENCOUNTER 2018-12-23 13:41 | Emergency (ER) | payer MEDICAID | END 2018-12-23 14:36 | disposition left against medical advice (07) | LOC: JP.ED 13:41 | DX: Z53.21 Procedure and treatment not carried out due to patient leaving prior to being seen by health care provider (principal) ==

== ENCOUNTER 2019-06-02 22:53 | Emergency (ER) | payer MEDICAID ==
[2019-06-02 23:17] VITALS: BP 118/72; PULSE 102
[2019-06-03] MEDS ORDERED: Acetaminophen 325 MG Tab PO ONE (00:03)
[2019-06-03] MEDS ORDERED: Ketorolac 30 MG/ML SDV IM ONE (00:04)
--- NOTE | 2019-06-03 00:11 | EDM.PDOC ---
ED HPI GENERAL MEDICAL PROBLEM - General Chief Complaint: General Stated Complaint: CHEST PAINS FOR AWHILE Time Seen by Provider: 06/03/19 00:00 Source of Information: Reports: Patient, Old Records, RN History Limitations: Reports: No Limitations - History of Present Illness INITIAL COMMENTS - FREE TEXT/NARRATIVE: 53 yo female here with R sided chest pain for about 6 mos that comes and goes. She saw her primary some time ago about this and was told they would schedule an exercise stress test but this has not yet occurred. Tonight the pain is radiating to her posterior R shoulder and she is not able to sleep so comes to the ER. There has not been an injury to this area. She did not take anything for the pain. No SOB, nausea or diaphoresis. No hx of CAD. These areas are tender to touch and are not worse with exertion. No calf pain or LE edema. 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) Right Chest Pain Score (Numeric/FACES): 6 - Related Data Allergies Allergy/AdvReac Type Severity Reaction Status Date / Time No Known Allergies Allergy Verified 10/13/18 14:43 Home Meds: Home Meds FLUoxetine HCl [Prozac] 60 mg PO DAILY 05/11/17 [History] Gabapentin [Neurontin] 600 mg PO ASDIRECTED 09/10/17 [History] Past Medical History HEENT History: Reports: Impaired Vision 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 History: Reports: None RN HOME CARE History: Reports: Musculoskeletal History: Reports: Back Pain, Chronic Other Musculoskeletal History: carpal tunnel Psychiatric History: Reports: Anxiety, Depression Endocrine/Metabolic History: Reports: Obesity/BMI 30+ Hematologic History: Reports: Anemia, B12 Deficiency, Iron Deficiency Immunologic History: Reports: None - Infectious Disease History Infectious Disease History: Reports: Chicken Pox - Past Surgical History Head Surgeries/Procedures: Reports: None GI Surgical History: Reports: Bariatric Procedure Female Surgical History: Reports: Section Endocrine Surgical History: Reports: None Musculoskeletal Surgical History: Reports: Arthroscopic Knee, Carpal Tunnel Social & Family History - Family History Family Medical History: Noncontributory - Tobacco Use Smoking Status *Q: Former Smoker Years of Tobacco use: 40 Used Tobacco, but Quit: Yes Month/Year Tobacco Last Used: april 2019 - Caffeine Use Caffeine Use: Reports: Coffee, Tea - Recreational Drug Use Recreational Drug Use: No ED ROS GENERAL - Review of Systems Review Of Systems: See Below Constitutional: Reports: No Symptoms Respiratory: Reports: No Symptoms Cardiovascular: Reports: Chest Pain (right sided.). Denies: Dyspnea on Exertion , Edema, Orthopnea, Palpitations, Syncope GI/Abdominal: Reports: No Symptoms Musculoskeletal: Reports: Other (R posterior shoulder pain) Skin: Reports: No Symptoms Neurological: Reports: No Symptoms ED EXAM, GENERAL - Physical Exam Exam: See Below Exam Limited By: No Limitations General Appearance: Alert, WD/WN, No Apparent Distress, Thin Eye Exam: Bilateral Eye: Normal Inspection Ears: Normal External Exam, Normal Canal, Hearing Grossly Normal, Normal TMs Ear Exam: Bilateral Ear: Auricle Normal, Canal Normal, TM normal Nose: Normal Inspection, No Blood Throat/Mouth: Normal Inspection, Normal Lips, Normal Oropharynx, Normal Voice, No Airway Compromise Head: Atraumatic, Normocephalic Neck: Normal Inspection Respiratory/Chest: No Respiratory Distress, Lungs Clear, Normal Breath Sounds, No Accessory Muscle Use, Other (R sided chest wall tenderness, no crepitus, no bruising, no redness. ). No: Chest Non-Tender Cardiovascular: Regular Rate, Rhythm, No Edema. No: Bradycardia, Tachycardia GI/Abdominal: Normal Bowel Sounds, Soft, Non-Tender, No Distention Back Exam: Normal Inspection. No: CVA Tenderness (R), CVA Tenderness (L) Extremities: Normal Inspection, Normal Range of Motion, No Pedal Edema, Other ( tender on palpation of the R posterior shoulder. Also, tender over the distal R clavicle matching up with the pathology noted on her CXR.). No: Non-Tender Neurological: Alert, Oriented, CN II-XII Intact, Normal Cognition, No Motor/ Sensory Deficits Psychiatric: Normal Affect, Normal Mood Skin Exam: Warm, Dry, Intact, Normal Color, No Rash Course - Vital Signs Last Recorded V/S: Last Vital Signs Temp 36.3 C 06/02/19 23:16 Pulse 102 H 06/02/19 23:16 Resp 17 12/02/19 23:16 BP 118/72 06/02/19 23:16 Pulse Ox 100 06/02/19 23:16 - Orders/Labs/Meds Labs: Laboratory Tests 06/03/19 06/03/19 Range/Units 00:10 00:10 Troponin I < 0.017 (0.000-0.056) ng/mL C-Reactive Protein 0.06 (0.0-0.3) mg/dL Meds: Medications Discontinued Medications Generic Name Dose Route Start Last Admin Trade Name Sabra PRN Reason Stop Dose Admin Acetaminophen 650 mg 06/03/19 00:03 06/03/19 00:28 Tylenol PO 06/03/19 00:04 650 mg NOW ONE Administration Ketorolac Tromethamine 30 mg 06/03/19 00:04 06/03/19 00:29 Toradol IM 06/03/19 00:05 30 mg ONETIME ONE Administration - Radiology Interpretation Free Text/Narrative:: CXR-IMPRESSION: New tapering of the distal right clavicle. This can be seen with posttraumatic osteolysis, rheumatoid arthritis, or myeloma. Metastases or osteomyelitis thought to be much less likely. Dictated by Sharon Alvarez MD @ Jun 03 2019 12:44AM Departure - Departure Time of Disposition: 01:04 Disposition: Home, Self-Care 01 Condition: Fair Clinical Impression: Right-sided chest wall pain - Discharge Information *PRESCRIPTION DRUG MONITORING PROGRAM REVIEWED*: No *COPY OF PRESCRIPTION DRUG MONITORING REPORT IN PATIENT DAMION: No Instructions: Nonspecific Chest Pain Referrals: Tennille Bernard I ASSURANCE ENGINEER [Primary Care Provider] - Forms: ED Department Discharge Additional Instructions: Use ibuprofen 400 mg every 6 hrs with food for pain relief. Add [place] as directed for added relief. Take your X-ray to your next appt and try to get in to see your provider as soon as you can.
--- NOTE | 2019-06-03 00:45 | CRLCR ---
INDICATION: The right chest wall pain for 6 months TECHNIQUE: Chest 2 views. COMPARISON: March 07, 2010 FINDINGS: Cardiovascular and mediastinum: Heart size and vasculature are normal in caliber and appearance. Mediastinum is within normal limits. Lungs and pleural spaces: Lungs are mildly hyperinflated. Lungs are clear. No sign of infiltrate or mass. No sign of pleural effusion. No pneumothorax. Bones and soft tissues: New tapering the distal right clavicle. No bony erosion or suspicious osseous lesion identified. Mild degenerative changes in the spine. Multiple old rib fractures, unchanged. IMPRESSION: New tapering of the distal right clavicle. This can be seen with posttraumatic osteolysis, rheumatoid arthritis, or myeloma. Metastases or osteomyelitis thought to be much less likely. Dictated by Sharon Alvarez MD @ Jun 03 2019 12:44AM Signed by Dr. Sharon Alvarze @ Jun 03 2019 12:44AM
== END 2019-06-03 01:36 | disposition home or self-care (01) ==
LOC: JP.ED 22:53
DX: R07.89 Other chest pain (principal); E66.9 Obesity, unspecified; F32.9 Major depressive disorder, single episode, unspecified; Z68.1 Body mass index [BMI] 19.9 or less, adult; Z79.899 Other long term (current) drug therapy; Z87.891 Personal history of nicotine dependence
CPT/HCPCS: 36415; 71046; 84484; 86140; 96372; 99285; A9270; J1885

== ENCOUNTER 2019-11-28 13:01 | Emergency (ER) | payer MEDICAID ==
[2019-11-28 13:44] VITALS: BP 105/57; PULSE 74
[2019-11-28] MEDS ORDERED: Ketorolac 60 MG/2 ML SDV IM ONE (13:54)
--- NOTE | 2019-11-28 14:01 | EDM.PDOC ---
ED HPI GENERAL MEDICAL PROBLEM - General Chief Complaint: General Stated Complaint: ABD PAIN/RIGHT SHOULDER PAIN Time Seen by Provider: 11/28/19 13:45 Source of Information: Reports: Patient History Limitations: Reports: No Limitations - History of Present Illness INITIAL COMMENTS - FREE TEXT/NARRATIVE: 53-year-old female who fell 3 days ago in her garden, fell onto an outstretched right arm and landed on her right side. Since that time she has had some deep pain in the trapezius and upper shoulder area on the right side and some pain in her left hip. She is ambulating without any limp, looks comfortable and moving her arms without any objective evidence of discomfort. She has an appointment with physical therapy on Sunday to start working on her right shoulder for other reasons. Onset: Sudden Duration: Day(s): (3 days ago) Location: Reports: Upper Extremity, Right, Lower Extremity, Left Quality: Reports: Ache, Burning Worsens with: Reports: Movement Associated Symptoms: Reports: No Other Symptoms - Related Data Allergies Allergy/AdvReac Type Severity Reaction Status Date / Time No Known Allergies Allergy Verified 11/28/19 13:35 Home Meds: Home Meds FLUoxetine HCl [Prozac] 60 mg PO DAILY 05/11/17 [History] Gabapentin [Neurontin] 600 mg PO TID 09/10/17 [History] Calcium Citrate/Vitamin D3 [Calcium Citrate - Vit D Caplet] 1 each PO BID [History] Cholecalciferol (Vitamin D3) [Vitamin D3] 1,000 unit PO DAILY 08/01/19 [History] Cyanocobalamin (Vitamin B-12) [Cyanocobalamin Injection] 1,000 mcg IJ Q21D 08/01 [History] Lidocaine 5% [Lidoderm 5%] 1 patch TOP BID 08/01/19 [History] OLANZapine [Olanzapine] 10 mg PO DAILY 08/01/19 [History] traZODone 150 mg PO BEDTIME 08/01/19 [History] Past Medical History HEENT History: Reports: Impaired Vision 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 History: Reports: None 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: Musculoskeletal History: Reports: Back Pain, Chronic Other Musculoskeletal History: carpal tunnel Psychiatric History: Reports: Anxiety, Depression Endocrine/Metabolic History: Reports: Obesity/BMI 30+ Hematologic History: Reports: Anemia, B12 Deficiency, Iron Deficiency Immunologic History: Reports: None - Infectious Disease History Infectious Disease History: Reports: Chicken Pox - Past Surgical History Head Surgeries/Procedures: Reports: None GI Surgical History: Reports: Bariatric Procedure Female Surgical History: Reports: Section Endocrine Surgical History: Reports: None Musculoskeletal Surgical History: Reports: Arthroscopic Knee, Carpal Tunnel Social & Family History - Family History Family Medical History: Noncontributory - Tobacco Use Smoking Status *Q: Current Every Day Smoker Years of Tobacco use: 30 Packs/Tins Daily: 0.1 - Caffeine Use Caffeine Use: Reports: Coffee, Tea ED ROS GENERAL - Review of Systems Review Of Systems: See Below Constitutional: Denies: Fever, Chills Respiratory: Denies: Shortness of Breath Cardiovascular: Denies: Chest Pain GI/Abdominal: Reports: Abdominal Pain (Discomfort in her deep left groin) : Reports: No Symptoms Skin: Denies: Bruising, Rash, Erythema Neurological: Denies: Paresthesia ED EXAM, GENERAL - Physical Exam Exam: See Below Exam Limited By: No Limitations General Appearance: Alert, No Apparent Distress Head: Atraumatic Neck: Other (Some tenderness to palpation to the lower right paracervical muscles into the trapezius) Respiratory/Chest: No Respiratory Distress, Lungs Clear Cardiovascular: Regular Rate, Rhythm GI/Abdominal: Normal Bowel Sounds, Soft, Non-Tender Extremities: Other (Exam of the right shoulder reveals full active and passive range of motion, although she is fairly tender along the superior aspect of the scapula into the trapezius. Clavicle is nontender. Exam of the lower extremities reveals a deep discomfort in the left groin with internal and external rotation of the left hip and palpation of the area, no hernia or bruising. ) Neurological: Alert, Oriented, No Motor/Sensory Deficits Course - Vital Signs Last Recorded V/S: Last Vital Signs Temp 97.7 F 11/28/19 13:42 Pulse 74 11/28/19 13:42 Resp 14 11/28/19 13:42 BP 105/57 L 11/28/19 13:42 Pulse Ox 96 11/28/19 13:42 - Orders/Labs/Meds Meds: Medications Discontinued Medications Generic Name Dose Route Start Last Admin Trade Name Freq PRN Reason Stop Dose Admin Ketorolac Tromethamine 60 mg 11/28/19 13:54 11/28/19 14:02 Toradol IM 11/28/19 13:55 60 mg ONETIME ONE Administration - Re-Assessments/Exams Free Text/Narrative Re-Assessment/Exam: 11/28/19 14:02 Patient was fairly insistent she needed extra pain control so was given 60 mg of IM Toradol, and will be given 20 additional doses of oral Toradol to take every 6-8 hours through the weekend until she starts physical therapy next week. If not improving satisfactorily she can recheck with her primary provider. Departure - Departure Time of Disposition: 14:38 Disposition: Home, Self-Care 01 Clinical Impression: Strain of left groin Right shoulder strain Qualifiers: Encounter type: initial encounter Qualified Code(s): S46.911A - Strain of unspecified muscle, fascia and tendon at shoulder and upper arm level, right arm , initial encounter - Discharge Information Instructions: Muscle Strain, [id number] Referrals: Agata Wallace MD [Primary Care Provider] - Forms: ED Department Discharge Care Plan Goals: Take 1 dose of Toradol every 6-8 hours through the weekend, increase activity as tolerated and recheck next week as scheduled. Avoid ibuprofen or naproxen if taking Toradol, Tylenol and gabapentin are okay. Sepsis Event Note - Evaluation Sepsis Screening Result: No Definite Risk - Focused Exam Vital Signs: Vital Signs Temp Pulse Resp BP Pulse Ox 11/28/19 13:42 97.7 F 74 14 105/57 L 96 Date Exam was Performed: 11/28/19 Time Exam was Performed: 15:22
== END 2019-11-28 14:38 | disposition home or self-care (01) ==
LOC: JP.ED 13:01
DX: S46.911A Strain of unspecified muscle, fascia and tendon at shoulder and upper arm level, right arm, initial encounter (principal); S39.011A Strain of muscle, fascia and tendon of abdomen, initial encounter; F41.9 Anxiety disorder, unspecified; F32.9 Major depressive disorder, single episode, unspecified; E66.9 Obesity, unspecified; Z68.21 Body mass index [BMI] 21.0-21.9, adult; F17.210 Nicotine dependence, cigarettes, uncomplicated; W18.30XA Fall on same level, unspecified, initial encounter
CPT/HCPCS: 96372; 99283; J1885

== ENCOUNTER 2020-02-01 16:53 | Emergency (ER) | payer MEDICAID ==
[2020-02-01 17:16] VITALS: BP 119/68; PULSE 89
[2020-02-01] MEDS ORDERED: Acetaminophen/HYDROcodone 325-5 MG Tab PO ONE (17:40)
[2020-02-01] MEDS ORDERED: Ibuprofen 600 MG Tab PO ONE (17:40)
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
--- NOTE | 2020-02-02 09:43 | CR ---
Shoulder Comp Rt CLINICAL HISTORY: Trauma FINDINGS: There is no acute fracture or dislocation in the right shoulder. There is penciling of the distal clavicle. This is likely related to previous surgery. Impression: Clavicle deformity from previous surgery No acute fracture or dislocation
== END 2020-02-01 18:32 | disposition home or self-care (01) ==
LOC: JP.ED 16:53
DX: S40.011A Contusion of right shoulder, initial encounter (principal); E66.9 Obesity, unspecified; F32.9 Major depressive disorder, single episode, unspecified; F41.9 Anxiety disorder, unspecified; Z98.890 Other specified postprocedural states; Z79.899 Other long term (current) drug therapy; Z68.21 Body mass index [BMI] 21.0-21.9, adult; Y04.8XXA Assault by other bodily force, initial encounter
CPT/HCPCS: 73030; 99284; A9270; 99283

== ENCOUNTER 2020-03-29 16:24 | Emergency (ER) | payer MEDICAID ==
[2020-03-29] MEDS ORDERED: Ketorolac 30 MG/ML SDV IM ONE (17:28)
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
[2020-03-29 17:36] VITALS: BP 135/90; PULSE 112
== END 2020-03-29 18:03 | disposition home or self-care (01) ==
LOC: JP.ED 16:24
DX: S40.011A Contusion of right shoulder, initial encounter (principal); F41.9 Anxiety disorder, unspecified; F32.9 Major depressive disorder, single episode, unspecified; E66.9 Obesity, unspecified; Z79.899 Other long term (current) drug therapy; Z68.1 Body mass index [BMI] 19.9 or less, adult; W22.8XXA Striking against or struck by other objects, initial encounter
CPT/HCPCS: 96372; 99283; J1885

== ENCOUNTER 2020-12-21 12:50 | Emergency (ER) | payer MEDICAID ==
[2020-12-21 14:06] VITALS: BP 133/76; PULSE 71
[2020-12-21] MEDS ORDERED: Ketorolac 30 MG/ML SDV IM ONE (14:30)
--- NOTE | 2020-12-21 14:38 | EDM.PDOC ---
ED HPI GENERAL MEDICAL PROBLEM - General Chief Complaint: Lower Extremity Injury/Pain Stated Complaint: PAIN IN BOTH LEGS Time Seen by Provider: 12/21/20 14:15 Source of Information: Reports: Patient, Old Records, RN History Limitations: Reports: No Limitations - History of Present Illness INITIAL COMMENTS - FREE TEXT/NARRATIVE: 55 yo NA female presents with bilat buttocks pain. Sx's have been present for about a month and are getting worse. Currently does not have a primary care provider. Is being tx's with gabapentin for neuropathy and it is getting worse. Has an appt next week to get established with Dr. Antonio. Last provider took her off her B12. Has a hx of gastric bypass. Denies back injury. Pain not worse with coughing. No bowel or bladder dysfunction. 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) (none) Bilateral Buttock Pain Score (Numeric/FACES): 8 - Related Data Allergies Allergy/AdvReac Type Severity Reaction Status Date / Time No Known Allergies Allergy Verified 12/21/20 14:11 Home Meds: Home Meds FLUoxetine HCl [Prozac] 60 mg PO DAILY 05/11/17 [History] Gabapentin [Neurontin] 600 mg PO TID 09/10/17 [History] Calcium Citrate/Vitamin D3 [Calcium Citrate - Vit D Caplet] 1 each PO BID 08/01/19 [History] Cholecalciferol (Vitamin D3) [Vitamin D3] 1,000 unit PO DAILY 08/01/19 [History] traZODone 150 mg PO BEDTIME 08/01/19 [History] Multivitamin W/Iron, Minerals [Theratrum Complete 50 Plus] 1 tab PO DAILY 06/07/20 [History] Lidocaine 4% [Aspercreme 4%] 1 each TP 11/11/20 [History] Past Medical History HEENT History: Reports: Impaired Vision 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 History: Reports: 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: Musculoskeletal History: Reports: Back Pain, Chronic Other Musculoskeletal History: carpal tunnel Psychiatric History: Reports: Anxiety, Depression Endocrine/Metabolic History: Reports: Obesity/BMI 30+ Hematologic History: Reports: Anemia, B12 Deficiency, Iron Deficiency Immunologic History: Reports: None - Infectious Disease History Infectious Disease History: Reports: Chicken Pox - Past Surgical History GI Surgical History: Reports: Bariatric Procedure Female Surgical History: Reports: Section Musculoskeletal Surgical History: Reports: Arthroscopic Knee, Carpal Tunnel Social & Family History - Family History Family Medical History: No Pertinent Family History - Tobacco Use Tobacco Use Status *Q: Current Some Day Tobacco User Years of Tobacco use: 20 Packs/Tins Daily: 0 - Caffeine Use Caffeine Use: Reports: Coffee - Recreational Drug Use Recreational Drug Use: No Review of Systems - Review of Systems Review Of Systems: See Below Constitutional: Reports: No Symptoms GI/Abdominal: Reports: No Symptoms Genitourinary: Reports: No Symptoms Musculoskeletal: Reports: Back Pain (low back and buttocks bilat.) Skin: Reports: No Symptoms Neurological: Reports: Numbness (bottoms of her feet. ) ED EXAM, GENERAL - Physical Exam Exam: See Below Exam Limited By: No Limitations General Appearance: Alert, WD/WN, No Apparent Distress Throat/Mouth: Normal Inspection, Normal Lips, Normal Voice, No Airway Compromise Head: Atraumatic, Normocephalic Respiratory/Chest: No Respiratory Distress, Lungs Clear, Normal Breath Sounds, No Accessory Muscle Use Cardiovascular: Regular Rate, Rhythm, No Edema Back Exam: Vertebral Tenderness, Other (bilateral SI jt pain. No sciatic notch pain. ). No: CVA Tenderness (R), CVA Tenderness (L) Extremities: Normal Inspection, Normal Range of Motion, Non-Tender, No Pedal Edema Neurological: Alert, Oriented, CN II-XII Intact, Normal Cognition, Other (some decreased sensation of feet bilat.). No: No Motor/Sensory Deficits Psychiatric: Normal Affect, Normal Mood Skin Exam: Warm, Dry, Intact, Normal Color, No Rash Course - Vital Signs Last Recorded V/S: Last Vital Signs Temp 36.5 C 12/21/20 14:10 Pulse 71 12/21/20 14:10 Resp 16 12/21/20 14:10 BP 133/76 12/21/20 14:10 Pulse Ox 97 12/21/20 14:10 - Orders/Labs/Meds Labs: Laboratory Tests 12/21/20 Range/Units 14:32 Sodium 143 (140-148) mmol/L Potassium 4.9 (3.6-5.2) mmol/L Chloride 104 (100-108) mmol/L Carbon Dioxide 31 (21-32) mmol/L Anion Gap 7.8 (5.0-14.0) mmol/L BUN 11 (7-18) mg/dL Creatinine 0.8 (0.6-1.0) mg/dL Est Cr Clr Drug Dosing 74.38 mL/min Estimated GFR (MDRD) > 60 (>60) Glucose 129 H (74-106) mg/dL Calcium 8.7 (8.5-10.1) mg/dL Meds: Medications Discontinued Medications Generic Name Dose Route Start Last Admin Trade Name Freq PRN Reason Stop Dose Admin Ketorolac Tromethamine 30 mg 12/21/20 14:30 12/21/20 14:56 Ketorolac 30 Mg/Ml Sdv IM 12/21/20 14:31 30 mg ONETIME ONE Administration Departure - Departure Time of Disposition: 15:15 Disposition: Home, Self-Care 01 Condition: Fair Clinical Impression: Sacro-iliac pain - Discharge Information *PRESCRIPTION DRUG MONITORING PROGRAM REVIEWED*: Not Applicable *COPY OF PRESCRIPTION DRUG MONITORING REPORT IN PATIENT DAMION: Not Applicable Instructions: Joint Pain, [id number] Referrals: PCP,None [Primary Care Provider] - Forms: ED Department Discharge Additional Instructions: Take acetaminophen 1000 mg every 6 hrs as needed for pain relief. F/U with PT for therapy. Keep your appt with Dr. Antonio for next week as scheduled. Sepsis Event Note (ED) - Evaluation Sepsis Screening Result: No Definite Risk - Focused Exam Vital Signs: Vital Signs Temp Pulse Resp BP Pulse Ox 12/21/20 14:10 36.5 C 71 16 133/76 97 12/21/20 14:05 36.5 C 71 16 133/76 97
== END 2020-12-21 15:23 | disposition home or self-care (01) ==
LOC: JP.ED 12:50
DX: M53.3 Sacrococcygeal disorders, not elsewhere classified (principal); G62.9 Polyneuropathy, unspecified; E66.9 Obesity, unspecified; Z79.899 Other long term (current) drug therapy; Z68.23 Body mass index [BMI] 23.0-23.9, adult; Z72.0 Tobacco use
CPT/HCPCS: 36415; 80048; 96372; 99283; J1885

== ENCOUNTER 2021-08-04 10:05 | Emergency (ER) | payer MEDICAID ==
[2021-08-04 10:22] VITALS: BP 138/76; PULSE 82
[2021-08-04] MEDS ORDERED: Albuterol 0.083% 2.5 MG/3 ML Neb Soln NEB ONE (11:00)
== END 2021-08-04 11:57 | disposition home or self-care (01) ==
LOC: JP.ED 10:05
DX: S90.31XA Contusion of right foot, initial encounter (principal); E66.9 Obesity, unspecified; Z68.23 Body mass index [BMI] 23.0-23.9, adult; X50.0XXA Overexertion from strenuous movement or load, initial encounter
CPT/HCPCS: 99283

== ENCOUNTER 2022-01-06 10:32 | Emergency (ER) | payer MEDICAID ==
[2022-01-06 10:42] VITALS: BP 123/80; PULSE 63
== END 2022-01-06 11:28 | disposition home or self-care (01) ==
LOC: JP.ED 10:32
DX: M19.071 Primary osteoarthritis, right ankle and foot (principal); E66.9 Obesity, unspecified; Z68.21 Body mass index [BMI] 21.0-21.9, adult; Z79.899 Other long term (current) drug therapy
CPT/HCPCS: 99282; 99283

== ENCOUNTER 2022-01-14 15:50 | Emergency (ER) | payer MEDICAID ==
[2022-01-14 16:05] VITALS: BP 124/71; PULSE 78
[2022-01-14] MEDS: Ketorolac 30 MG/ML SDV IM ONE (16:46)
== END 2022-01-14 16:49 | disposition home or self-care (01) ==
LOC: JP.ED 15:50
DX: M67.471 Ganglion, right ankle and foot (principal); F17.210 Nicotine dependence, cigarettes, uncomplicated; E66.9 Obesity, unspecified; Z79.899 Other long term (current) drug therapy; Z68.21 Body mass index [BMI] 21.0-21.9, adult
CPT/HCPCS: 96372; 99283; J1885

== ENCOUNTER 2022-01-16 10:37 | Emergency (ER) | payer MEDICAID | END 2022-01-16 14:09 | disposition left against medical advice (07) | LOC: JP.ED 10:37 | DX: Z53.21 Procedure and treatment not carried out due to patient leaving prior to being seen by health care provider (principal) ==

== ENCOUNTER 2022-05-09 13:11 | Emergency (ER) | payer MEDICAID ==
[2022-05-09 14:10] VITALS: BP 113/53; PULSE 72
[2022-05-09] MEDS ORDERED: Ketorolac 30 MG/ML SDV IM ONE (14:30)
== END 2022-05-09 15:33 | disposition home or self-care (01) ==
LOC: JP.ED 13:11
DX: M79.671 Pain in right foot (principal); F17.210 Nicotine dependence, cigarettes, uncomplicated; E66.9 Obesity, unspecified; Z68.23 Body mass index [BMI] 23.0-23.9, adult; Z79.899 Other long term (current) drug therapy
CPT/HCPCS: 73630; 96372; 99283; J1885